=== PATIENT | male | born 1975 | race Caucasian/White ===

== ENCOUNTER → 2022-11-19 12:46 | Outpatient (CLI) | payer MEDICARE, MEDICAID, SELFPAY ==
--- NOTE | 2022-11-19 12:52 | XR_ITS ---
FINAL REPORT CLINICAL HISTORY: rt shoulder pain FINDINGS: Right shoulder Three views were obtained. There is no acute fracture or dislocation. There are mild hypertrophic changes of the AC joint. No soft tissue abnormality is identified. IMPRESSION: No acute process. Reviewed, Interpreted and Dictated by Manuel Castro MD Transcribed by Yoselyn Maher Authenticated and [facility]
== END ==
PROVIDERS: PCP Nurse Practitioner Family; Visit Provider Orthopaedic Surgery
DX: M25.511 Pain in right shoulder (principal)
CPT/HCPCS: 73030

== ENCOUNTER → 2022-11-30 15:23 | Outpatient (CLI) | payer MEDICARE, MEDICAID, SELFPAY ==
--- NOTE | 2022-11-30 15:24 | MR_ITS ---
FINAL REPORT CLINICAL HISTORY: rt shoulder pain. LIMITED ROM. NO INJURY OR TRAUMA. WEAKNESS IN ARM. SHARP PAIN IN SHOULDER FINDINGS: Multiplanar MR imaging of the right shoulder was performed without contrast. The tendons of the rotator cuff are intact without evidence of rotator cuff tear. There is moderate AC joint degenerative change. A small amount of fluid is seen in the subacromial/subdeltoid bursa. The glenoid labrum is intact. There is significant fluid surrounding the long head of the biceps tendon within the bicipital groove. Biceps tenosynovitis cannot be excluded. There is thickening of the joint capsule at the axillary recess consistent with adhesive capsulitis. A moderate glenohumeral joint effusion is seen. There is no evidence of fracture or dislocation. The musculature is intact. There is no evidence of soft tissue mass. IMPRESSION: Adhesive capsulitis. Moderate AC joint arthrosis. Moderate joint effusion. Mild bursitis. Possible biceps tenosynovitis. Reviewed, Interpreted and Dictated by Camden Simon III, MD Transcribed by Lc Jain Authenticated and [facility]
== END ==
PROVIDERS: PCP Orthopaedic Surgery; Visit Provider Orthopaedic Surgery
DX: M25.511 Pain in right shoulder (principal)
CPT/HCPCS: 73221